=== PATIENT | female | born 1965 | race Two or more races ===

== ENCOUNTER → 2022-10-26 | Outpatient (CLI) | payer MEDICARE ==
--- NOTE | 2022-10-28 11:01 | PE ---
EXAMINATION TYPE: PET CT fusion skull to thigh DATE OF EXAM: 10/26/2022 CLINICAL INDICATION:Female, 57 years old with history of C34.12; TECHNIQUE: Following the intravenous administration of 9 mCi of F-18 FDG, whole body images are per formed from the skull base to the midthigh. Images are reviewed on the computer in the coronal, axia l, and sagittal planes. Reconstructed rotating images are created on independent workstation and rev iewed on the computer. A non-contrast CT is performed in conjunction with the PET scan. Glucose lev el 95 mg/dL COMPARISON: CT 04/26/2019, PET/CT 08/17/2022, 05/19/2019, FINDINGS: Mediastinal SUV mean is 1.6. Hepatic parenchyma SUV mean is 2.2. SKULL BASE AND NECK: No suspicious radiotracer activity. CHEST, MEDIASTINUM, AND HILAR REGION: Left upper lung mass measuring 5.0 x 3.8 cm with central cavitation and FDG activity along the periph chiid of max SUV 7.9, previously 9.6. There is similar consolidation changes descending away from the hilum. ABDOMEN AND PELVIS: No suspicious radiotracer activity. No abnormal FDG activity within the rectum/an us. OSSEOUS STRUCTURES: No suspicious radiotracer activity. OTHER CT: Atherosclerosis of the intracranial vasculature, the carotid bifurcations, and the visualiz ed arterial vasculature. Right chest wall [id number] with tip at the right atrium. Small left pleu ral effusion scattered areas of atelectasis/consolidation. Fat-containing umbilical hernia. Scattered colonic diverticula. Right hip fixation hardware which appears in appropriate position. Hepatic stea tosis. Left adrenal lipid rich adenoma measuring 2.1 cm. IMPRESSION: Minimally decreased (less than 25%) FDG activity of the left upper lung mass with central cavitation and peripheral areas of FDG activity. No evidence metastatic disease.
== END | disposition home or self-care (01) ==
LOC: RADPETMAIN 13:38
PROVIDERS: ATTEND Internal Medicine Hematology & Oncology
DX: C34.12 Malignant neoplasm of upper lobe, left bronchus or lung (principal); R91.8 Other nonspecific abnormal finding of lung field
CPT/HCPCS: 78815; A9552

== ENCOUNTER → 2023-04-17 | Outpatient (CLI) | payer MEDICARE ==
--- NOTE | 2023-04-18 10:39 | CT ---
EXAMINATION TYPE: CT angio chest DATE OF EXAM: 04/17/2023 COMPARISON: HISTORY: History of lung cancer. Pneumonia, shortness of breath, and tachycardia x 1 month with pro[address] ession. CT DLP: 478.6 mGycm CONTRAST: CT chest with contrast and 3D reconstruction with MIP imaging is performed with IV Contrast, patient injected with 100 mL of Isovue 370. Contrast-enhanced CT of the chest was performed through the course of the pulmonary arteries with catina g and mediastinal window settings submitted. 3D reconstruction with MIP imaging was also performed. PULMONARY ARTERIES: The pulmonary arteries and their major tributaries are patent. I do not see brook dence for sizable filling defect to suggest pulmonary embolic process. LUNGS: Left upper lobe mass measures 7.6 x 5.6 cm and encases left upper lobe vasculature. There is l eft basilar pleural effusion with maximal AP measurement of 4.4 cm. MEDIASTINUM: Thoracic aorta is of normal caliber,however, evaluation is limited given timing of the contrast bolus. If there is concern for thoracic aortic pathology consider MANJINDER. Correlate clinicall y . The heart is not enlarged. No evidence for mediastinal mass. No mediastinal lymph nodes greater than 1cm. HILAR STRUCTURES: No evidence for mass. No hilar lymph nodes greater than 1 cm. UPPER ABDOMEN: Left adrenal nodule noted which may reflect metastatic lesion and measures 2.3 cm. IMPRESSION: 1. No evidence for Pulmonary embolism at this time. 2. Left upper lobe mass as discussed above in a patient with history of malignancy. Left basilar pleu ral effusion and left adrenal nodule.
== END | disposition home or self-care (01) ==
LOC: RADCTMAIN 14:51
PROVIDERS: ATTEND Family Medicine
DX: R00.2 Palpitations (principal); J90 Pleural effusion, not elsewhere classified; R06.02 Shortness of breath; R00.0 Tachycardia, unspecified
CPT/HCPCS: 71275; Q9967

== ENCOUNTER → 2024-06-22 | Outpatient (CLI) | payer MEDICARE ==
--- NOTE | 2024-06-22 16:41 | CT ---
EXAMINATION TYPE: CT angio chest DATE OF EXAM: 06/22/2024 COMPARISON: 04/17/2023 CLINICAL INDICATION: Female, 59 years old with history of C34.12 LUNG CANCER R06.02 SOB; PHH, SOB, homa ng ca TECHNIQUE: CTA scan of the thorax is performed with IV Contrast, patient injected with 80cc mL of Isovue 370, pu lmonary embolism protocol. MIP images are created and reviewed. CT DLP: [address] CTDI: mGy Automated exposure control for dose reduction was used. FINDINGS: There is persistent abnormal consolidation in the left upper lobe and hilar region consistent with th e known malignancy likely indicating postobstructive pneumonitis. There is a persistent moderate left effusion. The right lung is clear. There is no filling defect within the pulmonary arterial circulation to indicate pulmonary embolus. N o focal osseous lesions are seen. There is no mediastinal, hilar or axillary adenopathy. There is a Mediport catheter in the SVC/RA junction. Limited scanning through the upper abdomen reveals a persistent 2.2 cm left adrenal nodule.. IMPRESSION: 1. No evidence of pulmonary embolism. 2. Marked acute cardiopulmonary disease involving the left lung demonstrated above. There is been no significant interval change compared to the prior study. Recurrent malignancy cannot be excluded. The findings could be related to prior lung resection and treatment. 3. Stable 2.2 cm left adrenal nodule. [facility] Kayla Logan, , 06/22/2024 4:38 PM
== END | disposition home or self-care (01) ==
LOC: RADCTMAIN 15:52
PROVIDERS: ATTEND Internal Medicine Hematology & Oncology
DX: C34.12 Malignant neoplasm of upper lobe, left bronchus or lung (principal); R53.82 Chronic fatigue, unspecified; R06.02 Shortness of breath; Z71.3 Dietary counseling and surveillance; Z90.2 Acquired absence of lung [part of]
CPT/HCPCS: 71275; Q9967